=== PATIENT | female | born 1955 | race Caucasian/White ===

== ENCOUNTER → 2017-08-23 | Outpatient (CLI) | payer BC ==
--- NOTE | 2017-08-24 11:02 | MM ---
Reason for exam: screening (asymptomatic). Last mammogram was performed 5 years and 1 month ago. History: Patient is postmenopausal. Family history of breast cancer in maternal grandmother at age 51 and breast cancer in mother at age 76. Benign excisional biopsy of the right breast, 1981. Benign excisional biopsy of the right breast, 1975. Took estrogen for 7 years beginning at age 48. Took progesterone for 7 years beginning at age 48. Physical Findings: A clinical breast exam by your physician is recommended on an annual basis and results should be correlated with mammographic findings. MG Screening Mammo w CAD Bilateral CC and MLO view(s) were taken. Prior study comparison: July 15, 2012, bilateral digital screening mammo w/CAD. September 13, 2009, bilateral digital screening mammogram. The breast tissue is heterogeneously dense. This may lower the sensitivity of mammography. Stable benign calcifications. There is no discrete abnormality. No significant changes when compared with prior studies. ASSESSMENT: Benign, BI-RAD 2 RECOMMENDATION: Routine screening mammogram of both breasts in 1 year.
== END | disposition home or self-care (01) ==
LOC: RADMAMWWP 12:44
PROVIDERS: ATTEND Internal Medicine
DX: Z12.31 Encounter for screening mammogram for malignant neoplasm of breast (principal)

== ENCOUNTER → 2018-02-07 | Outpatient (CLI) | payer BC ==
--- NOTE | 2018-02-07 15:27 | BD ---
EXAMINATION TYPE: Axial Bone Density DATE OF EXAM: 02/07/2018 COMPARISON: 2011 CLINICAL HISTORY: disorder of bone, M89.9, post menopausal female Height: 5'7 Weight: 168 FRAX RISK QUESTIONS: Secondary Osteoporosis: 3. Menopause before 45: y Current Tobacco Use: y RISK FACTORS HISTORY OF: History of Wrist Fracture: rt When: age 10 Family History of Osteoporosis: y Postmenopausal woman: MEDICATIONS: Additional Medications: vitamin D, depression, anxiety Additional History: EXAM MEASUREMENTS: Bone mineral densitometry was performed using the [employer] System. Bone mineral density as measured about the Lumbar spine is: ----- L1-L4(G/cm2): 1.014 T Score Values are as follows: ----- L2: -2.1 ----- L3: -0.4 ----- L4: -2.1 ----- L1-L4: -1.4 Bone mineral density has: Decreased -1.7% since study of: 07/15/2012 Bone mineral density about the R hip (g/cm2): 0.754 Bone mineral density about the L hip (g/cm2): 0.780 T Score values are as follows: -----R Neck: -2.0 -----L Neck: -1.9 -----R Total: -1.5 -----L Total: -1.9 Bone mineral density has: Decreased -2.2% since study of: 07/15/2012 IMPRESSION: Osteopenia (T Score between -2.5 and -1). There is slightly increased risk of fracture and the patient may be considered for treatment. Re-Screen 2-5 years. There is a spinal curvature. NOTE: T-SCORE=SD OF THE YOUNG ADULT MEAN.
== END | disposition home or self-care (01) ==
LOC: RADBDWWP 13:57
PROVIDERS: ATTEND Obstetrics & Gynecology
DX: M85.88 Other specified disorders of bone density and structure, other site (principal); M43.8X6 Other specified deforming dorsopathies, lumbar region
CPT/HCPCS: 77080

== ENCOUNTER → 2024-05-31 | Outpatient (CLI) | payer MEDICARE ==
--- NOTE | 2024-06-04 12:17 | MM ---
Reason for Exam: Screening (asymptomatic). Last mammogram was performed 6 year(s) and 10 month(s) ago. Patient History: Menarche at age 15. First Full-Term at age 20. Left ovary removed at age 48. Right ovary removed at age 48. Hysterectomy at age 48. Postmenopausal. Patient has history of breast feeding. Estrogen, starting at age 48 for 7 years. Progesterone, starting at age 48 for 7 years. 1981, Benign Excisional Biopsy on the right side. 1975, Benign Excisional Biopsy on the right side. Maternal grandmother had breast cancer, age 51. Mother had breast cancer, age 76. Risk Values: Glenny 5 year model risk: 4.7%. NCI Lifetime model risk: 15.4%. Prior Study Comparison: 09/13/2009 Bilateral Screening Mammogram, [facility]. 07/15/2012 Bilateral Screening Mammogram, [facility]. 08/23/2017 Bilateral Screening Mammogram, [facility]. Tissue Density: The breasts are heterogeneously dense, which may obscure small masses. Findings: Analyzed By CAD. Right breast: There is no suspicious group of microcalcifications or new suspicious mass. Left breast: There is no suspicious group of microcalcifications or new suspicious mass. Overall Assessment: Negative, BI-RAD 1 Management: Screening Mammogram of both breasts in [address] [facility] will attempt to contact patient to return for supplemental views and ultrasound if indicated. Patient should continue monthly self-breast exams. A clinical breast exam by your physician is recommended on an annual basis. This exam should not preclude additional follow-up of suspicious palpable abnormalities. Note on Glenny scores and lifetime risk: 1. A Glenny score greater than 3% is considered moderate risk. If this is the case, consider specialist referral to assess eligibility for a risk reducing agent. 2. If overall lifetime risk for the development of breast cancer is 20% or higher, the patient may qualify for future screening with alternating mammogram and breast MRI. Electronically signed and approved by: Tavo Feng DO
== END | disposition home or self-care (01) ==
LOC: RADMAMWWP 15:03
PROVIDERS: ATTEND Internal Medicine Geriatric Medicine
DX: Z12.31 Encounter for screening mammogram for malignant neoplasm of breast
CPT/HCPCS: 77063; 77067

== ENCOUNTER → 2024-07-12 | Outpatient (CLI) | payer MEDICARE ==
--- NOTE | 2024-07-12 22:47 | BD ---
EXAMINATION TYPE: Axial Bone Density DATE OF EXAM: 07/12/2024 CLINICAL HISTORY: 69 years old Female. ICD-10 CODE: M81.0 AGE-RELATED OSTEOPOROSIS W/O CURRENT PATHO LO Height: 67 Weight: 186.6 FRAX RISK QUESTIONS: Alcohol (3 or more units per day): no Family History (Parent hip fracture): mother Glucocorticoids (More than 3mos): no (Ex: prednisone, prednisolone, methylprednisolone, dexamethasone, and hydrocortisone). History of Fracture in Adulthood: no Secondary Osteoporosis: 1. Type 1 Diabetes: no 2. Hyperthyroidism: no 3. Menopause before 45: yes 4. Malnutrition: no 5. Chronic liver disease: no Rheumatoid Arthritis: no Current Tobacco Use: yes RISK FACTORS HISTORY OF: Hip Fracture (Right/Left): no Spine Fracture: no History of Wrist Fracture: RT Wrist When: age 10 Surgery to Spine/Hip(right/left)/Wrist (right/left): no MEDICATIONS: Thyroid Medications: no Osteoporosis Medications: no EXAM MEASUREMENTS: Bone mineral densitometry was performed using the [employer] System. Bone mineral density as measured about the Lumbar spine is: ----- L1-L4(G/cm2): 1.079 T Score Values are as follows: ----- L1: -1.4 ----- L2: -1.0 ----- L3: -0.5 ----- L4: -0.8 ----- L1-L4: -0.8 Z Score Values are as follows: ----- L1: -0.4 ----- L2: 0.0 ----- L3: 0.4 ----- L4: 0.2 ----- L1-L4: 0.1 Bone mineral density has: increased 6.4 % since study of: 02/07/2018 Bone mineral density about the R hip (g/cm2): 0.886 Bone mineral density about the L hip (g/cm2): 0.842 T Score values are as follows: -----R Neck: -0.9 -----L Neck: -1.7 -----R Total: -1.0 -----L Total: -1.3 Z Score values are as follows: -----R Neck: 0.2 -----L Neck: -0.6 -----R Total: -0.1 -----L Total: -0.5 Bone mineral density has: increased 5.8 % since study of: 02/07/2018 FRAX%s: The graph provided illustrates a 10.2% chance for a major osteoporotic fx and a 2.2% chance f or the hips probability for fx in 10 years time. IMPRESSION: Osteopenia (T Score between -2.5 and -1). There is slightly increased risk of fracture and the patient may be considered for treatment. Re-Screen 2-5 years. NOTE: T-SCORE=SD OF THE YOUNG ADULT MEAN. [facility], , 07/12/2024 10:45 PM
== END | disposition home or self-care (01) ==
LOC: RADBDWWP 14:48
PROVIDERS: ATTEND Internal Medicine Geriatric Medicine
CPT/HCPCS: 77080

== ENCOUNTER → 2024-09-15 | Outpatient (CLI) | payer MEDICARE ==
--- NOTE | 2024-09-15 18:48 | MR ---
EXAMINATION TYPE: MR cervical spine wo con DATE OF EXAM: 09/15/2024 5:43 PM COMPARISON: None. CLINICAL INDICATION: Female, 69 years old with history of M50.30 CERVICAL DISC DEGENERATION; PHH, Nec k pain and numbness down left arm into fingers TECHNIQUE: Multi planar, multi sequence imaging was performed utilizing: T1-weighted, T2-weighted, an d turbo inversion recovery imaging of the cervical spine. IV Contrast: mL (None, if empty) FINDINGS: Alignment: The cervical vertebral bodies have preserved heights. Alignment is within normal limits gi carie patient positioning. Bones: Bone signal is within normal limits. No abnormal bone marrow edema on inversion recovery seque nces. Cord: The spinal cord is unremarkable with regards to their signal intensity and morphology. Discs: Intervertebral disc signal is maintained. C2-C3: No significant disc pathology. The spinal canal is patent. No neural foraminal stenosis. C3-C4: No significant disc pathology. The spinal canal is patent. No neural foraminal stenosis. C4-C5: A disc osteophyte complex is present which minimally narrows the ventral subarachnoid space. Bilateral facet and uncovertebral joint arthropathy are present with moderate left and mild right ne ural foraminal stenosis. C5-C6: No significant disc pathology. The spinal canal is patent. No neural foraminal stenosis. C6-C7: No significant disc pathology. The spinal canal is patent. No neural foraminal stenosis. C7-T1: No significant disc pathology. The spinal canal is patent. No neural foraminal stenosis. Other: Right thyroid gland a T2 signal nodule measuring 14 mm.. IMPRESSION: 1. No evidence for disc herniation or significant spinal canal stenosis. 2. Multilevel disc degeneration with associated osteoarthritic changes. Neural foraminal stenosis wor se at C5-C6 on the left with moderate neural foraminal stenosis. 3. Right thyroid gland nodule measuring up to 14 mm. Consider evaluation with thyroid ultrasound. [facility], , 09/15/2024 6:45 PM
== END | disposition home or self-care (01) ==
LOC: RADMRIMAIN 16:45
PROVIDERS: ATTEND Orthopaedic Surgery
DX: M48.02 Spinal stenosis, cervical region (principal); M50.30 Other cervical disc degeneration, unspecified cervical region; E04.1 Nontoxic single thyroid nodule
CPT/HCPCS: 72141

== ENCOUNTER → 2024-10-16 | Outpatient (CLI) | payer MEDICARE ==
--- NOTE | 2024-10-16 15:18 | US ---
EXAMINATION TYPE: US thyroid st tissue head/neck DATE OF EXAM: 10/16/2024 COMPARISON: NONE CLINICAL INDICATION: Female, 69 years old with history of E04.1 Thyroid nodule; Left thyroid removed > 15 years ago TECHNIQUE: Grayscale and color Doppler imaging of the thyroid gland. FINDINGS: GLAND SIZE: Right Lobe: 4.9 x 1.8 x 1.6 cm Overall Parenchyma: heterogeneous Left Lobe: Surgically absent Isthmus Thickness: 0.3 cm NODULES RIGHT: # of nodules measured on right: 1 1. 1.7 X 1.5 x 1.2 cm, lower mid, cystic or almost completely cystic, anechoic nodule, which is wid er than tall, with smooth margins, without echogenic foci. Prior size: No prior LEFT: # of nodules measured on left: 0 Left thyroid fossa- Hypoechoic area seen, remanent tissue vs otehr etiology = 1.0 x 0.6 x 0.7 cm ISTHMUS: # of nodules measured in the isthmus: 0 Bilateral neck scanned, no evidence of lymphadenopathy. IMPRESSION: 1. There is hypoechoic area in the region of the left thyroid bed measuring 1 x 0.6 x 0.7 cm. Possibi lity represent residual thyroid or remnant tissue. Given there are no prior exams available for adelaida rison would recommend a 3 month follow-up ultrasound to confirm stability. If the patient had a histo ry of prior malignancy then would recommend PET scan. 2. There is a 1.7 cm right thyroid TR 2 nodule for which continued surveillance is recommended. 2017 ACR TI-RADS LEVEL: TR-RADS 2 - Not Suspicious: No FNA *Highest TI-RADS level nodule reported [email or web address] [facility], , 10/16/2024 3:16 PM
== END | disposition home or self-care (01) ==
LOC: RADUSWWP 14:44
PROVIDERS: ATTEND Internal Medicine Geriatric Medicine
DX: E04.1 Nontoxic single thyroid nodule (principal)
CPT/HCPCS: 76536

== ENCOUNTER → 2025-02-08 | Outpatient (CLI) | payer MEDICARE ==
--- NOTE | 2025-02-08 16:29 | US ---
EXAMINATION TYPE: US thyroid st tissue head/neck DATE OF EXAM: 02/08/2025 COMPARISON: 10/16/2024 CLINICAL INDICATION: Female, 69 years old with history of E04.1 NONTOXIC SINGLE THYROID NODULE; Left thyroid removed. Not on thyroid meds. TECHNIQUE: Grayscale and color Doppler imaging of the thyroid gland. FINDINGS: GLAND SIZE: Right Lobe: 5.1 x 1.8 x 1.7 cm Overall Parenchyma: homogeneous Left Lobe: Surgically absent cm Isthmus Thickness: 0.5 cm NODULES RIGHT: # of nodules measured on right: 1 1. 1.6 X 1.7 x 1.2 cm, lower mid, Prior size: 1.7 x 1.5 x 1.2 cm TIRADS Score: 0 TIRADS Category 1: Benign Composition: Cystic or almost completely cystic (0 points). Recommendation: No FNA LEFT: Surgically removed ISTHMUS: # of nodules measured in the isthmus: 0 Bilateral neck scanned, no evidence of lymphadenopathy. IMPRESSION: Right thyroid nodule that is a TIRADS Category 1: Benign Highest TI-RADS level nodule reported: 2017 ACR TI-RADS LEVEL: TI-RADS 1 - BENIGN: No FNA TI-RADS assessment score and recommendation for follow-up based on appropriate scoring and treatment protocols. TR1 Benign No FNA TR2 Not suspicious No FNA TR3: If nodule size is ? 2.5 cm, FNA is recommended. If nodule size is ? 1.5 cm, follow-up imaging at 1, 3, and 5 years is recommended. TR4: If nodule size is ? 1.5 cm, FNA is recommended. If nodule size is ? 1.0 cm, follow-up imaging at 1, 2, 3, and 5 years is recommended. TR5: If nodule size is ? 1.0 cm, FNA is recommended. If nodule size is ? 0.5 cm, annual follow-up for up to 5 years is recommended. TR 1 thyroid nodules have a 0.3 % risk of malignancy. TR 2 thyroid nodules have a 1.5 % risk of malignancy. TR 3 thyroid nodules have a 4.8 % risk of malignancy. TR 4 thyroid nodules have a 9.1 % risk of malignancy. TR 5 thyroid nodules have a 35 % risk of malignancy. [email or web address] [facility], , 02/08/2025 4:27 PM
== END | disposition home or self-care (01) ==
LOC: RADUSWWP 14:52
PROVIDERS: ATTEND Internal Medicine Geriatric Medicine
DX: E04.1 Nontoxic single thyroid nodule (principal)
CPT/HCPCS: 76536